=== PATIENT | male | born 1960 | race Caucasian/White ===

== ENCOUNTER 2017-08-25 18:13 | Emergency (ER) | payer BC, OTHER ==
[2017-08-25 20:50] LABS: ABS Basophils 0 10^3/ul (0-0.2); ABS Eosinophils 0.1 10^3/ul (0-0.6); ABS Lymphocytes 1.8 10^3/ul (1.0-4.8); ABS Monocytes 0.6 10^3/ul (0-0.8); ABS Neutrophils 8.1 10^3/ul (1.5-7.7); ABS Nucleated RBC 0 10^3/ul; Eosinophil % 0.5 % (0-6); Hematocrit 42 % (42-52); Hemoglobin 14.6 g/dl (14.0-18.0); Lymphocyte % 17.2 % (25-47); Mean Corpuscular HGB Conc 35 g/dl (31-36); Mean Corpuscular Hemoglobin 30 pg (27-31); Mean Corpuscular Volume 87 fL (80-94); Mean Platelet Volume 8 um3 (7.4-10.4); Nucleated Red Blood Cells % 0; Platelet Count 249 10^3/ul (150-450); Red Blood Count 4.84 10^6/ul (4.0-5.4); Red Cell Distribution Width 13 % (10.5-15); White Blood Count 10.6 10^3/ul (3.5-10.8)
[2017-08-25 21:07] LABS: EGFR Non-African American 94.2 (>60)
[2017-08-25] MEDS ORDERED: Meclizine TAB* 12.5 MG PO ONE (21:13)
[2017-08-25] MEDS ORDERED: Metoclopramide TAB* 10 MG PO ONE (21:13)
[2017-08-25] MEDS ORDERED: diPHENhydraMINE PO* 25 MG PO ONE (21:14)
[2017-08-25] MEDS ORDERED: Ketorolac INJ* 60 MG/2 ML VIAL IM ONE (21:14)
--- NOTE | 2017-08-25 21:33 | RAD ---
INDICATION: Headache and dizziness. COMPARISON: There are no prior studies available for comparison. TECHNIQUE: Contiguous axial sections of the brain were obtained from the skull base to the vertex without contrast. FINDINGS: The ventricles, cisterns and sulci are within normal limits. No significant focal abnormality or mass effect is seen. There is no evidence for hemorrhage. No significant focal osseous abnormality is seen. The visualized portion of the paranasal sinuses and mastoid air cells appear clear. IMPRESSION: NO EVIDENCE FOR ACUTE INTRACRANIAL ABNORMALITY.
[2017-08-25 21:50] LABS: Urine Appearance Clear; Urine Blood Negative (Negative); Urine Color Yellow; Urine Ketones 1+ (Negative); Urine Protein Negative (Negative); Urine Urobilinogen Negative (Negative)
[2017-08-26] VITALS: BP 148/97
--- NOTE | 2017-08-26 14:44 | ED ---
Aida Daly Gabriel, scribed for Satish Alston MD on 08/25/17 at 2114 . Dizziness - HPI Summary HPI Summary: This patient is a 56 year old M presenting to [facility] accompanied by his with a chief complaint of vertigo since yesterday afternoon.Pt states he saw his PCP and was treated for vertigo. Pt states he then began to have worsening vertigo symptoms and headache. The patient rates the pain 2/10 in severity. Patient reports nausea and diarrhea. Patient denies head trauma, vomiting, and decreased PO intake, or change in vision. Hx vertigo that was been slowly resolving for the last two weeks - History Of Current Complaint Chief Complaint: EDDizziness Stated Complaint: DIZZINESS,HEADACHE Time Seen by Provider: 08/25/17 20:57 Hx Obtained From: Patient Onset/Duration: Still Present Timing: Days - 2 Severity Initially: Moderate Severity Currently: Moderate Associated Signs And Symptoms: Positive: Negative - head trauma, vomiting, decreased PO intake,, Other: - GAR, nausea, diarrhea, - Allergies/Home Medications Allergies/Adverse Reactions: Allergies Allergy/AdvReac Type Severity Reaction Status Date / Time No Known Allergies Allergy Verified 01/13/13 10:22 PMH/Surg Hx/FS Hx/Imm Hx Endocrine/Hematology History: Denies: Hx Diabetes, Hx Thyroid Disease Cardiovascular History: Denies: Hx Hypertension Respiratory History: Denies: Hx Asthma, Hx Chronic Obstructive Pulmonary Disease (COPD) GI History: Denies: Hx Crohn's Disease, Hx Ulcer Musculoskeletal History: Denies: Hx Rheumatoid Arthritis, Hx Osteoporosis - Surgical History Surgery Procedure, Year, and Place: Gallbladder. T&A Infectious Disease History: No Infectious Disease History: Denies: Hx Hepatitis, Hx Human Immunodeficiency Virus (HIV), Traveled Outside the [place] in Last 30 Days - Family History Known Family History: Positive: Cardiac Disease - Social History Occupation: Employed Full-time Lives: With Family Alcohol Use: Occasionally Substance Use Type: Reports: None Smoking Status (MU): Former Smoker Type: Cigarettes Length of Time of Smoking/Using Tobacco: 22 years Have You Smoked in the Last Year: No Review of Systems Eyes: Negative - head trauma and decreased PO intake Positive: Diarrhea, Nausea. Negative: Vomiting Neurological: Other - dizziness Positive: Headache All Other Systems Reviewed And Are Negative: Yes Physical Exam - Summary Physical Exam Summary: Appearance: Well-appearing, no distress, Well-nourished Skin: Warm, color reflects adequate perfusion Head: Normal Head/Face inspection Eyes: Conjunctiva clear; no nystagmus ENT: Normal inspection Neck: Supple, no nodes, no JVD. Mild midline tenderness in the C7 Respiratory: Lungs clear, Normal breath sounds, no respiratory distress Cardio: RRR, No murmur, pulses normal, brisk capillary refill Abdomen: soft, nontender, no guarding, no rebound Bowel sounds: present Musculoskeletal: Strength Intact/ ROM intact. No calf tenderness. No edema. Neuro: Alert, muscle tone normal, facial symmetry, speech normal, sensory/motor intact. Cranial nerves intact II-XII Psychological: Normal GCS: 15 Triage Information Reviewed: Yes Vital Signs On Initial Exam: Initial Vitals Temp Pulse Resp BP Pulse Ox 98.7 F 98 22 128/91 100 08/25/17 18:25 08/25/17 18:25 08/25/17 18:25 08/25/17 18:25 08/25/17 18:25 Vital Signs Reviewed: Yes Diagnostics - Vital Signs Vital Signs Temp Pulse Resp BP Pulse Ox 08/25/17 20:51 64 97 08/25/17 20:48 132/82 08/25/17 18:25 98.7 F 98 22 128/91 100 - Laboratory Lab Results: Lab Results 08/25/17 08/25/17 Range/Units 20:40 20:40 WBC 10.6 (3.5-10.8) 10^3/ul RBC 4.84 (4.0-5.4) 10^6/ul Hgb 14.6 (14.0-18.0) g/dl Hct 42 (42-52) % MCV 87 (80-94) fL MCH 30 (27-31) pg MCHC 35 (31-36) g/dl RDW 13 (10.5-15) % Plt Count 249 (150-450) 10^3/ul MPV 8 (7.4-10.4) um3 Neut % (Auto) 75.9 (38-83) % Lymph % (Auto) 17.2 L (25-47) % [place] % (Auto) 6.0 (0-7) % Eos % (Auto) 0.5 (0-6) % Baso % (Auto) 0.4 (0-2) % Absolute Neuts (auto) 8.1 H (1.5-7.7) 10^3/ul Absolute Lymphs (auto) 1.8 (1.0-4.8) 10^3/ul Absolute Monos (auto) 0.6 (0-0.8) 10^3/ul Absolute Eos (auto) 0.1 (0-0.6) 10^3/ul Absolute Basos (auto) 0 (0-0.2) 10^3/ul Absolute Nucleated RBC 0 10^3/ul Nucleated RBC % 0 Sodium 138 (133-145) mmol/L Potassium 3.8 (3.5-5.0) mmol/L Chloride 107 (101-111) mmol/L Carbon Dioxide 24 (22-32) mmol/L Anion Gap 7 (2-11) mmol/L BUN 13 (6-24) mg/dL Creatinine 0.84 (0.67-1.17) mg/dL Est GFR ( Amer) 121.1 (>60) Est GFR (Non-Af Amer) 94.2 (>60) BUN/Creatinine Ratio 15.5 (8-20) Glucose 107 H (70-100) mg/dL Calcium 9.4 (8.6-10.3) mg/dL Magnesium 2.2 (1.9-2.7) mg/dL Total Bilirubin 1.70 H (0.2-1.0) mg/dL AST 17 (13-39) U/L ALT 13 (7-52) U/L Alkaline Phosphatase 27 L (34-104) U/L Troponin I 0.00 (<0.04) ng/mL Total Protein 6.6 (6.4-8.9) g/dL Albumin 3.9 (3.2-5.2) g/dL Globulin 2.7 (2-4) g/dL Albumin/Globulin Ratio 1.4 (1-3) TSH Pending Result Diagrams: 08/25/17 20:40 08/25/17 20:40 Lab Statement: Any lab studies that have been ordered have been reviewed, and results considered in the medical decision making process. - CT CT Head CT Interpretation Completed By: Radiologist - NO EVIDENCE FOR ACUTE INTRACRANIAL ABNORMALITY. ED physician has reviewed this radiology report. - EKG 20:52 Cardiac Rate: NL EKG Rhythm: Sinus Rhythm - at 65BPM EKG Interpretation: normal axis, normal intervals, No st/t wave changes Re-Evaluation - Re-Evaluation First Eval Change: Improved - Pt resting comfortably in bed. pt with no acute changes. pt headache resolved. will continue to monitor. Second Eval Re-Evaluation Time: 22:53 Change: Improved Comment: pt vertigo resolved. pt headache resolved. pt repeat CN exam intact II- XII; pt ambulatory in the ED without ataxia or symptoms. Dizzy Course/Dx - Course Course Of Treatment: Pt given oral antihistamines for vertigo with improvement in systems. Plan for symptomtic tx with close f/u. - Diagnoses Differential Diagnosis/HQI/PQRI: Anxiety, Benign Paroxysmal Positional Vertigo, Coronary Artery Disease, Hypovolemia, Labyrinthitis, Meniere's Disease, Transient Ischemic Attack, Vasovagal Reaction Provider Diagnoses: Vertigo, Headache Discharge - Discharge Plan Condition: Improved Disposition: HOME Prescriptions: Ketorolac TAB * [Toradol TAB *] 10 mg PO Q6H PRN #10 tab PRN Reason: Headache Meclizine TAB* [Antivert 12.5 TAB*] 25 mg PO TID PRN #12 tab PRN Reason: Vertigo Metoclopramide TAB* [Reglan TAB*] 10 mg PO Q6H PRN #7 tab PRN Reason: Vertigo Patient Education Materials: Acute Headache (ED), Benign Paroxysmal Positional Vertigo (ED) Referrals: No Primary Care Phys,NOPCP [Primary Care Provider] - The documentation as recorded by the Aida felton Gabriel accurately reflects the service I personally performed and the decisions made by , Satish Alston MD.
== END 2017-08-26 | disposition home or self-care (01) ==
LOC: ED 18:13
DX: R42 Dizziness and giddiness (principal); R51 Headache; Z87.891 Personal history of nicotine dependence
CPT/HCPCS: 36415; 70450; 80053; 81003; 83735; 84443; 84484; 85025; 93005; 96372; 99283; A9270-GY; J1885

== ENCOUNTER 2024-03-19 05:39 | Inpatient (IN) ==
[~2024-03-19 05:39] MED LIST: Metoclopramide 5 MG/ML VIAL (10 mg) IV PRN; NS 0.45% 1000 ml BAG 1,000 ML IV SCH; Naloxone 0.4 mg VIAL 0.4 mg/ml 1 ml VIAL IV PRN; Ondansetron 4 mg VIAL 2 MG/ML 2 ml VIAL IV PRN
[2024-03-19] MEDS: Buffered Lidocaine 1% SYRIN 1 ml INTRADERM ONE (05:49)
[2024-03-19] MEDS ORDERED: Chlorhexidine MOUTHWASH 0.12% 15 ML UDC ONE (06:09)
[2024-03-19] MEDS ORDERED: ceFAZolin 2 GM PREMIX 2 GM/50 ML BAG ONE (06:09)
[2024-03-19] MEDS: Lactated Ringers 1000 ml BAG 1,000 ML IV SCH ×2 (06:22→13:49)
[2024-03-19] MEDS: Scopolamine 1 mg/72hr PATCH TRANSDERM ONE (06:23)
[2024-03-19 06:32] LABS: Rapid COVID-19 Molecular Undetected (Undetected)
[2024-03-19] MEDS ORDERED: Thrombin 5,000 UNITS 1 APPLIC KIT - topical use - TOPICAL ONE (06:49)
[2024-03-19] MEDS ORDERED: Lidocaine 1% w EPI 1:200,000 SDV 30 ML VIAL ONE (06:49)
[2024-03-19] MEDS ORDERED: ceFAZolin VIAL VIAL ONE (06:49)
[2024-03-19] MEDS ORDERED: fentaNYL 250 mcg/5 ml 50 MCG/ML 5 ml VIAL (250 MCG) ONE (07:29)
[2024-03-19] MEDS ORDERED: Rocuronium 50 mg VIAL 10 mg/ml 5 ml VIAL (50 mg) ONE ×2 (07:30→08:33)
[2024-03-19] MEDS ORDERED: Glycopyrrolate IV 0.2 MG/ML 1 ML VIAL ONE (08:04)
[2024-03-19] MEDS ORDERED: Dexamethasone IV 4 MG/ML VIAL 1 ml VIAL ONE (08:04)
[2024-03-19] MEDS ORDERED: Ondansetron 4 mg VIAL 2 MG/ML 2 ml VIAL ONE (08:04)
[2024-03-19] MEDS ORDERED: Propofol 10 MG/ML 20 ML BTL ONE (08:04)
[2024-03-19] MEDS ORDERED: Morphine 2 MG/ML SYRINGE IV PRN (11:09)
[2024-03-19] MEDS ORDERED: Senna TAB 8.6 mg TAB PO PRN (11:09)
[2024-03-19] MEDS ORDERED: Phenol 1.4% Throat Spray BTL MT PRN (11:09)
[2024-03-19] MEDS ORDERED: Dextran 70/Hypromellose Tears Eye Drops 15 ml BTL (for Artificials Tears) BOTH EYES PRN (11:09)
[2024-03-19] MEDS ORDERED: Ondansetron 4 mg VIAL 2 MG/ML 2 ml VIAL IV PRN (11:09)
[2024-03-19] MEDS ORDERED: Calcium Carb (TUMS) 500 mg CHEW TAB PO PRN (11:09)
[2024-03-19] MEDS ORDERED: Benzocaine/Menthol LOZ MT PRN (11:09)
[2024-03-19] MEDS ORDERED: fentaNYL 100 mcg/2 ml 50 MCG/ML VIAL ONE (11:18)
[2024-03-19] MEDS: fentaNYL 100 mcg/2 ml 50 MCG/ML VIAL IV PRN (11:22)
[2024-03-19] MEDS: Acetaminophen IV 1 GM/100ML 1,000 MG/100 ML BAG IV ONE (13:37)
[2024-03-20 09:52] VITALS: BP 119/66
== END 2024-03-20 10:35 | disposition home or self-care (01) | DRG 310 ==
LOC: AA 05:39 → SSU 11:09
PROVIDERS: ADMIT Neurological Surgery; ATTEND Neurological Surgery